=== PATIENT | female | born 1990 | race Caucasian/White ===

== ENCOUNTER 2017-01-04 11:51 | Emergency (ER) | payer SELFPAY ==
[2017-01-04 15:05] LABS: BASOPHIL 0.2 % (0-2); EOSINOPHIL 2.1 % (0-5); HGB 13.3 g/dl (12.5-16.0); LYMPHOCYTE 24.3 % (15-48); MCH 31.3 pg (25.0-31.0); MCV 89.4 fL (78.0-100.0); MONOCYTE 8.4 % (0-12); MPV 11.5 fL (6.0-9.5); PLT 215 K/uL (150-400); RBC 4.25 M/uL (4.20-5.40); RDW 12.9 % (11.5-14.0); WBC 12.8 K/uL (4.0-10.5)
== END 2017-01-04 16:10 | disposition home or self-care (01) ==
LOC: FER 11:51
PROVIDERS: Internal Medicine
DX: L03.115 Cellulitis of right lower limb (principal); Z88.0 Allergy status to penicillin
CPT/HCPCS: 36415; 85025; 99283